=== PATIENT | female | born 2000 | race Caucasian/White ===

== ENCOUNTER 2023-07-15 12:35 | Emergency (ER) | payer SELFPAY ==
[2023-07-15 12:47] VITALS: BP 141/92; PULSE 102; RESP 16; TEMP 36.8; O2SAT 99; BMI 25.7
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
[2023-07-15 18:01] LABS: Add Urine Microscopic? NO; Charge for UA Resulting for Rev
[2023-07-15 18:05] LABS: Bilirubin Urine Neg (Negative); Blood Urine Neg (Negative); Glucose Urine UA Norm (Normal); Ketones Urine Negative (Negative); Leukocyte Esterase Urine Negative (Negative); Nitrate Urine Negative (Negative); Protein Urine Neg (Negative); Urine Appearance Clear (CLEAR); Urine Color Yellow (Yellow); Urobilinogen Urine Norm (Negative); pH Urine 7 (5-7)
[2023-07-15 18:07] LABS: HCG Qualitative Urine. Negative (Negative)
[2023-07-15 18:13] LABS: Amphetamines Screen Urine Negative (Negative); Barbiturates Screen Urine Negative (Negative); Benzodiazepines Screen Urine Positive (Negative); Cocaine Screen Urine Negative (Negative); Opiate Screen Urine Negative (Negative); PCP Screen Urine Negative (Negative); THC Screen Urine Negative (Negative)
[2023-07-15 19:11] VITALS: BP 141/92; PULSE 102; RESP 16; TEMP 36.8; O2SAT 99
[2023-07-17 20:15] LABS: Chlamydia Trachomatis RNA TMA NOT DETECTED (NOT DETECTED); Neisseria Gonorrhoeae RNA, TMA NOT DETECTED (NOT DETECTED); Trichomonas Vaginalis RNA NOT DETECTED (NOT DETECTED)
== END 2023-07-15 19:13 | disposition home or self-care (01) ==
PROVIDERS: Emergency Provider Nurse Practitioner Family; PCP Nurse Practitioner
DX: T74.21XA Adult sexual abuse, confirmed, initial encounter (principal); Y07.54 Acquaintance or friend, perpetrator of maltreatment and neglect
CPT/HCPCS: 80306; 81003; 81025; 87070; 87205; 87210; 87491; 87591; 99283; E0352

== ENCOUNTER → 2024-09-22 13:34 | Outpatient (BNVA) | payer OTHER, SELFPAY | PROVIDERS: PCP Nurse Practitioner; Referring Provider Nurse Practitioner Family; Visit Provider Obstetrics & Gynecology | DX: Z01.419 Encounter for gynecological examination (general) (routine) without abnormal findings | CPT/HCPCS: 81025; 88175 ==

== ENCOUNTER → 2025-01-22 13:03 | Outpatient (BNVA) | payer OTHER, SELFPAY | PROVIDERS: PCP Nurse Practitioner; Visit Provider Emergency Medicine | DX: S97.82XA Crushing injury of left foot, initial encounter (principal); X58.XXXA Exposure to other specified factors, initial encounter | CPT/HCPCS: 73630 ==